=== PATIENT | male | born 1955 | race Caucasian/White ===

== ENCOUNTER 2024-12-18 08:08 | Inpatient (IN) | payer OTHER ==
[~2024-12-18] VITALS: Ht 165.1 cm; Wt 90.2 kg
[~2024-12-18 08:08] MED LIST: ACET-2247 PO; AMLO-257 PO; BISA10SU11 PR; CLOT15CR29 TP; ETHA400T25 PO; FAMO20 PO; HEPA500018 SQ; INSU100V SQ; ISON300T90 PO; PANT-31 PO; PYRA500T33 PO; PYRI-9 PO; RIFA300C63 PO
[2024-12-18 08:36] LABS: COVID AG,FIA SOURCE NASAL SWAB
[2024-12-18 08:37] LABS: BASOPHILS % (AUTO) 0.7 % (0.0-2.0); EOSINOPHILS % (AUTO) 5.8 % (1.0-6.0); HEMOGLOBIN 15.6 g/dL (13.5-17.5); LYMPHOCYTES # (AUTO) 1.9 K/uL (1.0-4.8); LYMPHOCYTES % (AUTO) 28.5 % (22.0-44.0); MEAN CORPUSCULAR HEMOGLOBIN 30.9 pg (26.0-34.0); MEAN CORPUSCULAR HGB CONC 33.1 G/dL (31.0-37.0); MEAN CORPUSCULAR VOLUME 93 fL (80-100); MONOCYTES # (AUTO) 0.8 K/uL (0.1-1.0); MONOCYTES % (AUTO) 11.6 % (2.0-9.0); NEUTROPHILS # (AUTO) 3.5 K/uL (1.8-7.7); NEUTROPHILS % (AUTO) 53.4 % (40.0-70.0); PLATELET COUNT (AUTO) 254 K/uL (150-450); RED BLOOD CELL COUNT(AUTO) 5.05 MIL/uL (4.50-5.90); RED CELL DISTRIBUTION WIDTH 14.3 % (11.5-14.5); WHITE BLOOD COUNT (AUTO) 6.6 K/uL (4.5-11.0)
[2024-12-18 08:48] LABS: CALCIUM, TOTAL 8.6 mg/dL (8.8-10.5); CARBON DIOXIDE 28 mmol/L (22-29); CHLORIDE 107 mmol/L (98-107); CREATININE 0.89 mg/dL (0.60-1.30); GLOMERULAR FILTR. RATE CALC > 60 mL/min (>60); GLUCOSE,RANDOM 124 mg/dL (70-110); SODIUM SERUM 144 mmol/L (136-145); UREA NITROGEN, BLOOD 20 mg/dL (7-18)
[2024-12-18 08:51] LABS: BILIRUBIN,DIRECT 0.1 mg/dL (0.00-0.20); BILIRUBIN,TOTAL 0.2 mg/dL (0.1-1.0); TOTAL PROTEIN, SERUM 6.7 g/dL (6.4-8.2)
[2024-12-18 08:56] LABS: ALBUMIN 3.3 g/dL (3.4-5.0)
[2024-12-18 08:57] LABS: ANION GAP 9 mmol/L (8-16); TROPONIN I-HIGH SENSITIVITY 11 ng/L (<76)
[2024-12-18 09:04] LABS: INFLUENZA TYPE A NEGATIVE FOR TYPE A (NEGATIVE); INFLUENZA TYPE B NEGATIVE FOR TYPE B (NEGATIVE); SARS-COV2 (COVID) ANTIGEN,FIA Negative (Negative)
[2024-12-18] MEDS ORDERED: BECL10.6 IH (17:17)
[2024-12-18] MEDS ORDERED: LISI-894 PO (17:17)
[2024-12-18] MEDS ORDERED: METF-1185 PO (17:17)
[2024-12-18] MEDS ORDERED: CLON0.1T2 PO (17:17)
[2024-12-18] MEDS ORDERED: ALBU18HF12 IH (17:17)
[2024-12-18] MEDS: ACETAMINOPHEN 325 MG TABLET PO ONE (19:35)
[2024-12-18] MEDS ORDERED: ALBUTEROL SULFATE HFA 90 MCG/PUFF 8 GM INHALER IH PRN (20:45)
[2024-12-18] MEDS ORDERED: MORPHINE SULFATE 2 MG/ML SYRINGE IVP PRN (21:15)
[2024-12-18] MEDS ORDERED: IPRATROPIUM BROMIDE 0.5 MG/2.5 ML NEB SOLUTION NEB PRN (21:15)
[2024-12-18] MEDS ORDERED: HYDROCODONE/ACETAMINOPHEN 5-325 MG TABLET PO PRN (21:15)
[2024-12-18] MEDS ORDERED: ALBUTEROL SULFATE 2.5 MG/0.5 ML NEB SOLUTION NEB PRN (21:15)
[2024-12-18] MEDS ORDERED: ZOLPIDEM TARTRATE 5 MG TABLET PO PRN (21:15)
[2024-12-18] MEDS ORDERED: MAGNESIUM HYDROXIDE SUSPENSION 30 ML UDCUP PO PRN (21:15)
[2024-12-18] MEDS ORDERED: ACETAMINOPHEN 325 MG TABLET PO PRN (21:15)
[2024-12-18] MEDS ORDERED: BISACODYL 10 MG RECTAL RECTAL SUPPOSITORY PR PRN (21:15)
[2024-12-18 23:59] VITALS: BP 148/75; PULSE 70; RESP 20; TEMP 98.5; O2SAT 95
[2024-12-19] MEDS: HEPARIN SODIUM,PORCINE 5,000 UNITS/ML VIAL SQ SCH (00:07)
[2024-12-19 05:00] VITALS: BP 141/62; PULSE 69; RESP 18; TEMP 98.5; O2SAT 94
[2024-12-19 07:19] VITALS: BP_SYST 124; BP_SYST 131; BP_DIAS 41; BP_DIAS 67; PULSE 64; PULSE 78; RESP 18; TEMP 97.5; TEMP 97.7; O2SAT 95; O2SAT 99
[2024-12-19] MEDS: MetFORMIN HCL 850 MG TABLET PO SCH (09:41)
[2024-12-19] MEDS: PANTOPRAZOLE SODIUM 40 MG DR TABLET PO SCH ×2 (09:41→09:47)
[2024-12-19] MEDS: ETHAMBUTOL HCL 400 MG TABLET PO SCH (09:41)
[2024-12-19] MEDS: PYRAZINAMIDE 500 MG TABLET PO SCH (09:41)
[2024-12-19] MEDS: CloNIDine HCL 0.1 MG TABLET PO SCH (09:41)
[2024-12-19] MEDS: BECLOMETHASONE DIPR HFA 40 MCG/PUFF 10.6 GM INHALER IH SCH (09:42)
[2024-12-19] MEDS: PYRIDOXINE HCL 50 MG TABLET PO SCH (09:42)
[2024-12-19] MEDS: lisinopriL 20 MG TABLET PO SCH (09:42)
[2024-12-19] MEDS: ISONIAZID 300 MG TABLET PO SCH (09:42)
[2024-12-19] MEDS: rifAMPin 300 MG CAPSULE PO SCH (09:47)
[2024-12-19 12:04] VITALS: BP 144/80; PULSE 75; RESP 19; TEMP 98.1; O2SAT 96
[2024-12-19 15:53] VITALS: BP 151/78; PULSE 74; RESP 19; TEMP 98; O2SAT 95
[2024-12-19 18:45] LABS: GLUCOMETER DEV NAME(LOC) 5S.2D; GLUCOSE,POINT OF CARE 102 MG/DL (70-110)
[2024-12-19] MEDS ORDERED: DEXTROSE 50%-WATER 25 GM/50 ML SYRINGE IVP PRN (18:45)
[2024-12-19 20:24] VITALS: BP 136/69; PULSE 83; RESP 20; TEMP 97.5; O2SAT 93
[2024-12-20 02:16] LABS: GLUCOMETER DEV NAME(LOC) 5N.2C; GLUCOSE,POINT OF CARE 144 MG/DL (70-110)
[2024-12-20 06:51] LABS: GLUCOMETER DEV NAME(LOC) 5S.2D; GLUCOSE,POINT OF CARE 115 MG/DL (70-110)
[2024-12-20 09:21] VITALS: BP 153/81; PULSE 92; RESP 18; TEMP 98.1; O2SAT 92
[2024-12-20] MEDS: ONDANSETRON HCL 4 MG/2 ML VIAL IVP PRN (11:06)
[2024-12-20] MEDS: INSULIN LISPRO 100 UNITS/ML SQ PRN (11:07)
[2024-12-20 12:09] VITALS: TEMP 97.3; O2SAT 97
[2024-12-20 16:10] VITALS: BP 139/72; PULSE 87; RESP 19; TEMP 98; O2SAT 97
[2024-12-20] MEDS: ACYCLOVIR 800 MG TABLET PO SCH (17:20)
[2024-12-20 20:02] VITALS: BP 125/69; PULSE 84; RESP 18; TEMP 97.5; O2SAT 93
[2024-12-20 23:00] LABS: GLUCOMETER DEV NAME(LOC) 5S.2D; GLUCOSE,POINT OF CARE 100 MG/DL (70-110)
[2024-12-20 23:00] LABS: GLUCOMETER DEV NAME(LOC) 5S.2D; GLUCOSE,POINT OF CARE 176 MG/DL (70-110)
[2024-12-20 23:00] LABS: GLUCOMETER DEV NAME(LOC) 5S.2D; GLUCOSE,POINT OF CARE 158 MG/DL (70-110)
[2024-12-21] VITALS (8 sets, daily range): BP systolic 110–131; BP diastolic 54–71; PULSE 67–78; RESP 16–19; TEMP 97–98.2; O2SAT 91–95
[2024-12-21 06:16] LABS: GLUCOMETER DEV NAME(LOC) 5S.2D; GLUCOSE,POINT OF CARE 93 MG/DL (70-110)
[2024-12-21 18:51] LABS: GLUCOMETER DEV NAME(LOC) 5N.2C; GLUCOSE,POINT OF CARE 103 MG/DL (70-110)
[2024-12-21 18:51] LABS: GLUCOMETER DEV NAME(LOC) 5S.2D; GLUCOSE,POINT OF CARE 131 MG/DL (70-110)
[2024-12-21 21:05] LABS: GLUCOMETER DEV NAME(LOC) 5N.2C; GLUCOSE,POINT OF CARE 157 MG/DL (70-110)
[2024-12-22 03:48] VITALS: BP 141/76; PULSE 75; RESP 18; TEMP 97.7; O2SAT 94
[2024-12-22 06:20] LABS: GLUCOMETER DEV NAME(LOC) 5N.2C; GLUCOSE,POINT OF CARE 111 MG/DL (70-110)
[2024-12-22 07:22] VITALS: BP 161/61; PULSE 77; RESP 18; TEMP 97; O2SAT 95
[2024-12-22 08:48] VITALS: BP 134/83; PULSE 76; RESP 18; TEMP 97.5; O2SAT 92
[2024-12-22 13:21] LABS: GLUCOMETER DEV NAME(LOC) 5N.2C; GLUCOSE,POINT OF CARE 110 MG/DL (70-110)
[2024-12-22] MEDS ORDERED: ACYC-138 PO (14:26)
[2024-12-22 15:58] VITALS: BP 118/53; PULSE 80; RESP 18; TEMP 97.8; O2SAT 93
[2024-12-22 19:01] LABS: GLUCOMETER DEV NAME(LOC) 5S.2D; GLUCOSE,POINT OF CARE 113 MG/DL (70-110)
== END 2024-12-22 19:00 | DRG 204 ==
LOC: EMS 08:12 → EDH 11:23 → 5S 23:29
PROVIDERS: ADMIT Hospitalist; ATTEND Hospitalist
PROC: 5A09357 Assistance with Respiratory Ventilation, Less than 24 Consecutive Hours, Continuous Positive Airway Pressure (ICD-10-PCS; principal; 2024-12-21)
DX: R06.00 Dyspnea, unspecified (principal); G47.30 Sleep apnea, unspecified; I10 Essential (primary) hypertension; J44.89 Other specified chronic obstructive pulmonary disease; E11.9 Type 2 diabetes mellitus without complications; K21.9 Gastro-esophageal reflux disease without esophagitis; B02.9 Zoster without complications; Z22.7 Latent tuberculosis; Z91.81 History of falling
CPT/HCPCS: 71045; 71250; 80048; 80076; 82550; 82962; 83880; 84484; 85025; 87804; 93005; 94660; 99285; J1644; J2405; J3535; 36415-L1; 36415-TC; J7613